=== PATIENT | female | born 1975 | race Caucasian/White ===

== ENCOUNTER 2020-09-16 09:21 | Emergency (ER) | payer SELFPAY ==
[~2020-09-16] VITALS: Ht 162.6 cm; Wt 57.6 kg
[2020-09-16] MEDS ORDERED: ACETAMINOPHEN/CODEINE 300MG - 30MG TAB PO STA (09:24)
[2020-09-16] MEDS ORDERED: ACETAMINOPHEN/CODEINE 300MG - 30MG TAB ONE (09:43)
[2020-09-16] MEDS ORDERED: LIDOCAINE HCL 1% LOCAL INJ 20 ML VIAL INJ STA (09:56)
[2020-09-16 11:32] VITALS: BP 134/62
== END 2020-09-16 10:50 | disposition home or self-care (01) ==
LOC: ER 09:25
DX: S52.532A Colles' fracture of left radius, initial encounter for closed fracture (principal); S52.612A Displaced fracture of left ulna styloid process, initial encounter for closed fracture; W18.30XA Fall on same level, unspecified, initial encounter; Y93.01 Activity, walking, marching and hiking
CPT/HCPCS: 99283

== ENCOUNTER → 2024-08-22 | Day surgery (SDC) | payer OTHER ==
[2024-08-21 14:55] LABS: BASOPHILS # (AUTO) 0.1 (0.0-0.1); BASOPHILS % 1.2 % (0.0-1.0); EOSINOPHILS # (AUTO) 0.6 (0.0-0.4); EOSINOPHILS % 8.6 % (0.0-6.0); HEMATOCRIT 36.1 % (34.2-44.1); HEMOGLOBIN 11.4 g/dL (12.0-16.0); LYMPHOCYTES # (AUTO) 2.5 (1.0-3.2); LYMPHOCYTES % 36.2 % (18.0-39.1); MEAN CORPUSCULAR HEMOGLOBIN 32.1 pg (28-32); MEAN CORPUSCULAR HGB CONC 31.6 g/dL (31-35); MEAN CORPUSCULAR VOLUME 101.7 fL (81-99); MONOCYTES # (AUTO) 0.5 (0.2-0.8); MONOCYTES % 6.7 % (4.4-11.3); NEUTROPHILS # (AUTO) 3.2 (2.1-6.9); NEUTROPHILS % 47.2 % (38.7-80.0); PLATELET COUNT 388 x10e3/uL (140-360); RED BLOOD COUNT 3.55 x10e6/uL (3.6-5.1); RED CELL DISTRIBUTION WIDTH 15.1 % (11.7-14.4); WHITE BLOOD COUNT 6.87 x10e3/uL (4.8-10.8)
[~2024-08-22] MED LIST: ACETAMINOPHEN 1000 MG/100 ML 100 ML IV ONE; ASPIRIN 325 MG TAB PO SCH; BUPIVACAINE 0.5%/EPI 30 ML SDV INJ ONE; CELECOXIB 100 MG CAP PO SCH; CLINDAMYCIN 600MG / 50ML 50 ML IV ONE; CLINDAMYCIN IV SCH; DEXAMETHASONE SOD PHOS INJ 4 MG/ML SDV ONE; DOCUSATE SODIUM 100 MG CAP PO PRN; FAMOTIDINE 20 MG/2 ML VIAL IV ONE; FENTANYL CITRATE/PF 100MCG/2 ML INJ ONE; FLONASE ALLERG9.9 ML INH; GABAPENTIN400 MG PO; HYDROCODONE/APAP 7.5MG-325MG 1 EA TAB PO PRN; KETAMINE HCL INJ 50 MG/ML 10 ML VIAL ONE; LACTATED RINGER'S 1,000 ML ONE; LIDOCAINE HCL 2% LOCAL INJ 5 ML SDV VIAL INJ ONE; MELOXICAM7.5 MG PO; METHADONE HCL5 MG PO; MIDAZOLAM HCL 2 MG/2 ML VIAL ONE; ONDANSETRON HCL INJ 2MG/ML 2ML 2 MG/ML VIAL IV PRN; ONDANSETRON HCL INJ 2MG/ML 2ML 2 MG/ML VIAL ONE; PROPOFOL IV EMULSION 10 MG/ML 20 ML VIAL ONE; ROPIVACAINE/EPI/CLONIDINE/KET 50 ML SYRINGE INJ ONE; SEVOFLURANE INHAL SOLN 250 ML PEN BTL ONE; SODIUM CHLORIDE 0.9% IV SCH; VENTOLIN HFA18 GM INH
[2024-08-22] MEDS: HYDROMORPHONE 1MG/1ML INJ ONE (10:54)
[2024-08-22] MEDS: MEPERIDINE HCL INJ 25 MG/ML VIAL ONE (11:21)
[2024-08-22] MEDS: HYDROCODONE/APAP 7.5MG-325MG 1 EA TAB ONE (13:30)
[2024-08-22 16:00] VITALS: BP 125/75; PULSE 70; RESP 15; TEMP 98.4; O2SAT 96
== END | disposition home or self-care (01) ==
LOC: OR 06:16
PROVIDERS: ATTEND Orthopaedic Surgery Adult Reconstructive Orthopaedic Surgery
DX: M16.11 Unilateral primary osteoarthritis, right hip (principal); M06.9 Rheumatoid arthritis, unspecified; J45.909 Unspecified asthma, uncomplicated; G89.29 Other chronic pain; F17.200 Nicotine dependence, unspecified, uncomplicated; Z88.0 Allergy status to penicillin; Z01.810 Encounter for preprocedural cardiovascular examination; Z01.812 Encounter for preprocedural laboratory examination; Z01.818 Encounter for other preprocedural examination; Z79.1 Long term (current) use of non-steroidal anti-inflammatories (NSAID); Z79.899 Other long term (current) drug therapy
CPT/HCPCS: 27130; 36415; 71046; 72170; 85025; 86850; 86900; 93005; 97116; 97161; 97530; C1713 ×5; C1776 ×2; J0131; J1100; J1171; J1308; J2003; J2175; J2250; J2405; J2704; J3010; J7121

== ENCOUNTER → 2024-09-26 | Day surgery (SDC) | payer OTHER ==
[2024-09-24 15:45] LABS: BASOPHILS % 0.8 % (0.0-1.0); EOSINOPHILS % 1.1 % (0.0-6.0); LYMPHOCYTES % 18.8 % (18.0-39.1); MONOCYTES % 5.3 % (4.4-11.3); NEUTROPHILS % 73.9 % (38.7-80.0); RED CELL DISTRIBUTION WIDTH 13.3 % (11.7-14.4)
[~2024-09-26] MED LIST changes: -CLINDAMYCIN 600MG / 50ML 50 ML IV ONE; -CLINDAMYCIN IV SCH; +EPHEDRINE SULFATE INJ 50 MG/ML VIAL ONE; -FAMOTIDINE 20 MG/2 ML VIAL IV ONE; -KETAMINE HCL INJ 50 MG/ML 10 ML VIAL ONE; -LACTATED RINGER'S 1,000 ML ONE; -ONDANSETRON HCL INJ 2MG/ML 2ML 2 MG/ML VIAL ONE; -SODIUM CHLORIDE 0.9% IV SCH
[2024-09-26] MEDS: LACTATED RINGER'S 1,000 ML ONE (06:51)
[2024-09-26] MEDS: CLINDAMYCIN 600MG / 50ML 50 ML IV ONE (06:55)
[2024-09-26 10:07] VITALS: TEMP 98.2
[2024-09-26] MEDS: FENTANYL CITRATE/PF 100MCG/2 ML INJ IV ONE ×2 (11:28→12:01)
[2024-09-26 12:30] VITALS: BP 150/90; PULSE 100; RESP 16; O2SAT 99
== END | disposition home or self-care (01) ==
LOC: OR 05:47
PROVIDERS: ATTEND Orthopaedic Surgery Adult Reconstructive Orthopaedic Surgery
DX: M16.12 Unilateral primary osteoarthritis, left hip (principal); Z96.641 Presence of right artificial hip joint; Z88.0 Allergy status to penicillin; Z79.82 Long term (current) use of aspirin; Z79.1 Long term (current) use of non-steroidal anti-inflammatories (NSAID); Z79.891 Long term (current) use of opiate analgesic; Z01.812 Encounter for preprocedural laboratory examination
CPT/HCPCS: 27130; 36415; 72170; 85025; 86850; 86900; 97116; 97161; C1713 ×4; C1776 ×3; J0131; J1100; J2003; J2250; J2704; J3010; J7121